=== PATIENT | male | born 1985 | race Hispanic/Latino ===

== ENCOUNTER 2016-09-14 14:27 | Inpatient (IN) | payer MEDICAID ==
[2016-09-14 14:27] VITALS: BMI 23.4
--- NOTE | 2016-09-14 14:49 | C.PDOC ---
History Of Present Illness 31 yr old male with PMHx of schizophrenia, presents to the ER stating he is hearing voices that are telling him to go jump off the bridge. Patient states he was seen at [facility] 2 weeks ago and was discharged with medicine which he has been taking. Patient states he has no outpatient follow up since he is homeless. Denies fever, chest pain, SOB, nausea, vomiting, weakness or numbness. Time Seen by Provider: 09/14/16 14:41 Chief Complaint (Nursing): Psychiatric Evaluation History Per: Patient History/Exam Limitations: no limitations Onset/Duration Of Symptoms: Persistent Past Medical History Reviewed: Historical Data, Nursing Documentation, Vital Signs - Medical History PMH: Anxiety, Back Problems, Bipolar Disorder, Depression, Paranoia, Schizophrenia Surgical History: - [facility] Procedures GROUP PSYCHOTHERAPY (09/01/16) INDIVID PSYCHOTHERAP NEC (07/25/14) INDIVIDUAL PSYCHOTHERAPY, BEHAVIORAL (01/25/15) INDIVIDUAL PSYCHOTHERAPY, COGNITIVE-BEHAVIORAL (04/02/16) INDIVIDUAL PSYCHOTHERAPY, SUPPORTIVE (09/01/16) INJECT/INFUSE NEC (05/02/13) INTRODUCTION OF SERUM/TOX/VACCINE INTO MUSCLE, PERC APPROACH (01/25/15) NEBULIZER THERAPY (07/08/14) OTHER GROUP THERAPY (07/25/14) PSYCHIA INTERV/EVAL NEC (07/22/14) PSYCHIAT DRUG THERAP NEC (02/02/14) Family History: States: No Known Family Hx - Social History Hx Tobacco Use: Yes Hx Alcohol Use: No Hx Substance Use: No - Immunization History Hx Tetanus Toxoid Vaccination: No Hx Influenza Vaccination: No Hx Pneumococcal Vaccination: No Review Of Systems Except As Marked, All Systems Reviewed And Found Negative. Constitutional: Negative for: Fever Cardiovascular: Negative for: Chest Pain Respiratory: Negative for: Shortness of Breath Gastrointestinal: Negative for: Nausea, Vomiting Neurological: Negative for: Weakness, Numbness Psych: Positive for: Other ((+) Hearing voices, telling him to kill himself. ) Physical Exam - Physical Exam Appears: Non-toxic Skin: Warm, Dry, No Rash Head: Atraumatic, Normacephalic Chest: Symmetrical, No Tenderness Cardiovascular: Rhythm Regular, No Murmur Respiratory: Normal Breath Sounds, No Rales, No Wheezing Extremity: Normal ROM, No Swelling Neurological/Psych: Oriented x3, Normal Speech, Normal Motor ED Course And Treatment - Laboratory Results Result Diagrams: 09/14/16 15:50 09/14/16 15:20 Lab Interpretation: No Acute Changes Interpretation Of Abnormal: Depakote level subtherapeutic Progress Note: Patient was seen in ED by crisis and case presented to Dr Walsh. He is accepted for admission to psych unit. Medical Decision Making Medical Decision Making: PLAN: * Alcohol Serum * Drug Screen * CBC * CMP * Urinalysis Disposition - Disposition Disposition: HOSPITALIZED Disposition Time: 17:02 Condition: STABLE - Clinical Impression Clinical Impression: Schizo affective schizophrenia - Scribe Statement The provider has reviewed the documentation as recorded by the Raiza Loving Provider Attestation: All medical record entries made by the Raiza were at my direction and personally dictated by me. I have reviewed the chart and agree that the record accurately reflects my personal performance of the history, physical exam, medical decision making, and the department course for this patient. I have also personally directed, reviewed, and agree with the discharge instructions and disposition.
[2016-09-14 15:27] LABS: RBC URINE 1 /hpf (0-3); URINE BILIRUBIN NEGATIVE (NEGATIVE); URINE BLOOD NEGATIVE (NEGATIVE); URINE COLOR Yellow (YELLOW); URINE GLUCOSE (UA) NORMAL (Normal); URINE KETONE NEGATIVE (NEGATIVE); URINE LEUKOCYTE ESTERASE NEG Leu/uL (Negative); URINE PROTEIN NEGATIVE (NEGATIVE); URINE UROBILINOGEN NORMAL mg/dL (0.2-1.0); WBC URINE < 1 /hpf (0-5)
[2016-09-14 15:35] LABS: CHLORIDE 101 mmol/L (98-107); SODIUM 137 mmol/L (132-148)
[2016-09-14 15:38] LABS: ALB/GLOB RATIO 1.3 (1.0-2.1); ALKALINE PHOSPHATASE 75 U/L (38-126); ALT/SGPT 31 U/L (21-72); AST/SGOT 25 U/L (17-59); BILIRUBIN,TOTAL 0.6 mg/dL (0.2-1.3); BLOOD UREA NITROGEN 9 mg/dL (9-20); CALCIUM 9.4 mg/dl (8.6-10.4); CARBON DIOXIDE 26 mmol/L (22-30); GFR AFRICAN-AMERICAN > 60; GLUCOSE,RANDOM 106 mg/dL (75-110); TOTAL PROTEIN 7.1 g/dL (6.3-8.3)
[2016-09-14 15:39] LABS: ALCOHOL SERUM < 10 mg/dl (0-10)
[2016-09-14 15:53] LABS: BASO # 0.1 K/uL (0.0-0.2); BASO % 1.4 % (0.0-2.0); EOS # 0.2 K/uL (0.0-0.7); EOS % 2.3 % (0.0-4.0); HEMATOCRIT 42.6 % (35.0-51.0); LYMPH # 2.4 K/uL (1.0-4.3); LYMPH % 26.9 % (20.0-40.0); MEAN CELL VOLUME 89.7 fL (80.0-94.0); MEAN CORPUSCULAR HEMOGLOBIN 30.8 pg (27.0-31.0); MEAN CORPUSCULAR HGB CONC 34.3 g/dL (33.0-37.0); MEAN PLATELET VOLUME 7.8 fL (7.2-11.7); MONO # 1.1 K/uL (0.0-0.8); MONO % 12.9 % (0.0-10.0); RED CELL DISTRIBUTION WIDTH 13.3 % (11.5-14.5); WHITE BLOOD COUNT 8.8 K/uL (4.8-10.8)
[2016-09-14] MEDS: Divalproex 250 mg DR Tab PO SCH (22:34)
[2016-09-15] MEDS: Divalproex 250 mg DR Tab PO SCH (11:09)
--- NOTE | 2016-09-15 13:06 | PCM.PSYCH ---
Initial Psychiatric Evaluation - Initial Psychiatric Evaluation Type of Admission: Voluntary Legal Status: Capacity Chief Complaint (in patient's own words): "I'm hearing voices' History of Present Illness and Precipitating Events: The pt is seen, chart reviewed and case discussed. He is well-known to the bond underwriter from previous admissions in [facility]. He was recently, about a week ago, discharged from [facility] where he had been admitted with similar complaints. He was stabilized with haldol and depakote 1500 mg/d, and referred to their partial program. He, as always, did not follow up, nor took his meds (VA level was very low) and got sick again: hearing voices telling him to jump off a bridge again - which he did 10-15 years ago. On top of that he pt lost his housing and day program in [facility] ([facility] / case mgt program and [facility] program) due to his non- compliance, constantly disappearing as he would come to [facility] w/o telling anyone. He has his mo and aunt here but they can't take or help him ( bond underwriter had spoken in March) He denies acute SI or HI but still hearing voices. Contracts for safety and will follow safety plan No new medical issues. Medically stable. No drugs or alcohol, except for occasional MJ use and 2 ppd cigarettes No family hx of psych/CHANTE issues. This is an excerpt from his most recent admission: Pt is a 31 y.o., single, male who referred self to the ED secondary to experiencing command auditory hallucinations. Pt has an extensive psychiatric history, both voluntary and involuntary admissions. Pt reported he was committed to [facility] for 11 months in 2016 due to command auditory hallucinations. Pt reported being committed and transferred from [facility] in [place], [place]. Pt reported at that time he was on a [employer] to [place] to visit his brother and decided to get off the bus in [place], [place]. Pt also reported he was admitted to [facility] on 04/17/16 and discharged on 08/10/16. Pt reported he was also committed to [facility] due to command auditory hallucinations. Pt reported that just recently, on August 29 he was discharged from [facility] after being admitted for a week. Pt reported at that time he was started on the Invega injection; 2nd dosage. Pt reported this was a voluntary admission. Pt reported hx of prior suicide attempt. Pt reported he attempted suicide in January 2013 via jumping [place] [address] in [place], [place]. Pt reported he was brought to [facility] at that time and admitted for 2 weeks. Pt reported hx of self- injurious bxs via cutting. Pt denied hx of aggression/assaultive bxs. Pt reported no acute medical issues. Prior to hospitalization, pt reported being homeless. Pt reported he has been homeless on and off. Pt reported that he was a resident at a retirement in [facility] for couple of weeks however, just recently decided to walk out and not return. Pt reported that he does not want to be a retirement and rather go to a Alf upon discharge. Pt reported hx at [facility] in [place], [place]. Pt also reported he resided in [place], [place] with the assistance of [facility] however; lost his apartment due to my behavior. Pt never and has no children. Pt has 6 siblings, 4 brothers and 2 sisters. Pt reported limited contact with siblings. Pt reported an unsupportive relationship with his mother due to past discords and verbal altercations. Pt is currently not linked to any agency or program. Pt reported unknown family hx of mental illness and/or SA/ETOH abuse. Pt denied ETOH abuse. Pt reported using marijuana last week after being clean for 2 years. Pt reported using marijuana to "get away from everything and see if the voices would leave me alone." Pt also reported smoking cigarettes, 2 packs per day. Pt denied hx of physical/sexual/ emotional/verbal abuse. Pt denied hx of any legal issues. Pt reported he completed High School. Pt is not a member of the labor force. Pt is disabled. Pt reported no work hx. Pt denied access to firearms/weapons. Pt did not identify with any jain. Current Medications: Active Medications Generic Name Dose Route Start Last Admin Trade Name Freq PRN Reason Stop Dose Admin Benztropine Mesylate 2 mg 09/14/16 18:48 09/14/16 22:34 Cogentin PO 2 mg Q6 PRN Administration Extra Pyramidal Symptoms Diphenhydramine HCl 50 mg 09/14/16 18:48 Benadryl PO Q6 PRN Extra Pyramidal Symptoms Divalproex Sodium 250 mg 09/14/16 19:00 09/15/16 11:[address] PO 250 mg BID AROLDO Administration Haloperidol 5 mg 09/14/16 18:48 Haldol PO Q8 PRN Moderate Agitation Haloperidol 5 mg 09/14/16 19:00 09/15/16 11:09 Haldol PO 5 mg BID AROLDO Administration Haloperidol Lactate 5 mg 09/14/16 18:48 Haldol IM Q8 PRN Moderate Agitation Lorazepam 2 mg 09/14/16 18:48 Ativan PO Q8H PRN Severe Agitation Trazodone HCl 100 mg 09/14/16 22:00 09/14/16 22:34 Desyrel PO 100 mg HS AROLDO Administration Past Psychiatric History - Past Psychiatric History Previous Treatment History: Inpatient Pertinent Medical Hx (Current Medical&Sleep Prob, Allergies): Allergies Allergy/AdvReac Type Severity Reaction Status Date / Time No Known Allergies Allergy Verified 09/14/16 14:39 Divalproex [Depakote DR(*BID*)] 500 mg PO DAILY #30 tcp 09/05/16 Haloperidol [Haldol] 5 mg PO BID #60 tab 09/05/16 Review of Systems - Neurological Neurological: Weakness - Psychiatric Psychiatric: Abnormal Sleep Pattern, Anhedonia, Anxiety, Auditory Hallucinations , Behavioral Changes, Change in Appetite, Depression, Difficulty Concentrating, Hallucinations, Hopelessness, Irritability, Mood Swings, Paranoia. absent: Homicidal Ideation, Suicidal Ideation Mental Status Examination - Personal Presentation Personal Presentation: Looks stated age - Affect Affect: Blunted - Motor Activity Motor Activity: Calm - Reliability in Providing Information Reliability in Providing Information: Fair - Speech Speech: Organized - Mood Mood: Depressed, Anxious - Formal Thought Process Formal Thought Process: Hallucinations, Circumstantial - Cognitive Functions Orientation: Person, Place, Situation, Time Sensorium: Alert Attention/Concentration: Easily distracted Abstract Thinking: Riddle Estimate of Intelligence: Average Judgement: Imparied, as evidence by: Poor judgement Memory: Recent intact, as evidence by: Ability to recall events of the day, Remote intact, as evidenced by: Ability to recall historical events - Risk Risk: Diminished functioning - Strength & Assets Inventory Strength & Assets Inventory: Cooperative - Limitations Limitations: Living alone, Other (homeless) DSM 5 DX - DSM 5 DSM 5 Diagnosis: Schizoaffective - depressed - Recommended/Plan of Treatment Treatment Recommendations and Plan of Treatment: Haldol Decanoate or Invega Sustena shot as he is very non-compliant with meds Resume depakote Consider Clozapine prn meds Cogentin Attend groups and activities Support and psychoed RI for MJ use Patch and RI for tobacco use Refer to [facility] program 34 min Projected ELOS: 7 days Prognosis: Fair Discharge Plan and Discharge Criteria: Refer to [facility] or PACT team or [facility] No AVH/del or SI are the dc crietria - Smoking Cessation Smoking Cessation Initiated: Yes
[2016-09-15] MEDS: Divalproex 500 mg DR Tab PO SCH (18:11)
[2016-09-16] MEDS: Divalproex 500 mg DR Tab PO SCH ×3 (10:09→17:11)
--- NOTE | 2016-09-16 18:08 | PCM.PYCHPN ---
Psychiatric Progress Note - Psychiatric Progress Note Patient seen today, length of contact: 16 min Patient Chief Complaint: "I'm OK I guess" Problems Identified/Issues Discussed: The pt is seen, chart reviewed, case discussed with staff. The pt is compliant with medications and reports no side-effects. Symptoms are improving but needs more time to stabilize. After care discussed, support and psychoeducation given. In valle Sustenna shot is ordered, will be given on Monday. He agreed to be referred to [facility] and CRC, and stay in [facility] He is somewhat more agreeable this time, likely due to the 2 injections he got last month Medication Change: Yes (add Invega Sustenna) Medical Record Reviewed: Yes Mental Status Examination - Cognitive Function Orientation: Person, Place, Situation, Time Memory: Intact Attention: WNL Concentration: WNL Association: WNL Fund of Knowledge: WNL - Mood Mood: Depressed, Anxious - Affect Affect: Constricted - Speech Speech: Appropriate - Formal Thought Process Formal Thought Process: Hallucinations - Suicidal Ideation Suicidal Ideation: No - Homicidal Ideation Homicidal Ideation: No Goal/Treatment Plan - Goal/Treatment Plan Need for Continued Stay: Discharge may exacerbated symptoms, Severe functional impairment Progress Toward Problem(s) and Goals/Treatment Plan: Haldol Decanoate or Invega Sustena shot as he is very non-compliant with meds Resume depakote Consider Clozapine prn meds [place] Attend groups and activities Support and psychoed [place] for MJ use Patch and OH for tobacco use Refer to [facility] program and CRC Estimated Date of D/C: 09/21/16
[2016-09-17] MEDS: Divalproex 500 mg DR Tab PO SCH ×3 (09:20→17:38)
[2016-09-18 07:07] VITALS: O2SAT 98
[2016-09-18] MEDS: Divalproex 500 mg DR Tab PO SCH ×3 (09:30→17:19)
--- NOTE | 2016-09-19 00:35 | PCM.PYCHPN ---
Psychiatric Progress Note - Psychiatric Progress Note Patient seen today, length of contact: 16 min Patient Chief Complaint: I AM HEARING VOICES STILL Problems Identified/Issues Discussed: SYMPTOM MANAGEMENT AFTERCARE Medical Problems: NOTHING ACUTE Diagnostic Results: REVIWED DSM 5 Symptoms Update: AUDITORY HALLUCINATION Medication Change: No Medical Record Reviewed: Yes Mental Status Examination - Cognitive Function Orientation: Person, Place, Situation, Time Memory: Intact Attention: WNL Concentration: WNL Association: WNL Fund of Knowledge: WNL - Mood Mood: Depressed, Anxious - Affect Affect: Constricted - Speech Speech: Appropriate - Formal Thought Process Formal Thought Process: Hallucinations - Homicidal Ideation Homicidal Ideation: No Goal/Treatment Plan - Goal/Treatment Plan Need for Continued Stay: Discharge may exacerbated symptoms, Failed transitioning, Severe functional impairment Progress Toward Problem(s) and Goals/Treatment Plan: SCHIZOAFFECTIVE DISORDER TAKING MEDS ATTENDING GROUPS Estimated Date of D/C: 09/21/16 - Smoking Cessation Smoking Cessation Initiated: Yes
--- NOTE | 2016-09-19 03:08 | PCM.PYCHPN ---
Psychiatric Progress Note - Psychiatric Progress Note Patient seen today, length of contact: 16 min Patient Chief Complaint: THE VOICES ARE LESS INTENSE Problems Identified/Issues Discussed: GROUNDING DISTRACTION RELAXATION TECHNICS FOR SYMPTOM MANAGEMENT Medical Problems: NOTHING ACUTE Diagnostic Results: REVIEWED Medication Change: No Medical Record Reviewed: Yes Mental Status Examination - Cognitive Function Orientation: Person, Place, Situation, Time Memory: Intact Attention: WNL Association: [facility] Fund of Knowledge: WN - Mood Mood: Depressed, Anxious - Affect Affect: Constricted - Speech Speech: Appropriate - Formal Thought Process Formal Thought Process: Hallucinations - Suicidal Ideation Suicidal Ideation: No - Homicidal Ideation Homicidal Ideation: No Goal/Treatment Plan - Goal/Treatment Plan Need for Continued Stay: Remain at risks for inpatient hospitalization, Discharge may exacerbated symptoms, Failed transitioning, Severe functional impairment Progress Toward Problem(s) and Goals/Treatment Plan: SCHIZOAFFECTIVE DISORDER HI CBT SUPPORTIVE PSYCHOTHERAPY Estimated Date of D/C: 09/21/16 - Smoking Cessation Smoking Cessation Initiated: No
[2016-09-19] MEDS: Divalproex 500 mg DR Tab PO SCH ×3 (09:48→17:12)
[2016-09-19] MEDS ORDERED: INVEGA SUSTENNA 117 MG IM ONE (11:00)
[2016-09-19] MEDS ORDERED: PALIPERIDONE IM ONE (11:00)
--- NOTE | 2016-09-19 13:58 | PCM.PYCHPN ---
Psychiatric Progress Note - Psychiatric Progress Note Patient seen today, length of contact: 16 min Patient Chief Complaint: "I need to go" Problems Identified/Issues Discussed: The pt is seen, chart reviewed, case discussed with staff. Support given, CBT used briefly No new symptoms reported, improving slowly and needs some more time No SEs from medications, risks discussed. AIMS is zero After care discussed - Ok with [facility] Medication Change: Yes (Add inderal for possible akathisia) Medical Record Reviewed: Yes Mental Status Examination - Cognitive Function Orientation: Person, Place, Situation, Time Memory: Intact Attention: WNL Association: WNL Fund of Knowledge: WNL - Mood Mood: Depressed, Anxious - Affect Affect: Constricted - Speech Speech: Appropriate - Formal Thought Process Formal Thought Process: Hallucinations - Suicidal Ideation Suicidal Ideation: No - Homicidal Ideation Homicidal Ideation: No Goal/Treatment Plan - Goal/Treatment Plan Need for Continued Stay: Remain at risks for inpatient hospitalization, Discharge may exacerbated symptoms, Failed transitioning, Severe functional impairment Progress Toward Problem(s) and Goals/Treatment Plan: Invega Sustena shot given as he is very non-compliant with meds Depakote Consider Clozapine next time Low dose haldol and cogentin due to breakthru sxs prn meds Cogentin Attend groups and activities Support and psychoed ID for MJ use Patch and ID for tobacco use Refer to [facility] program and [facility] Estimated Date of D/C: 09/21/16
[2016-09-20 07:42] VITALS: BP 143/79; PULSE 69; RESP 18; TEMP 97.9
--- NOTE | 2016-09-20 10:54 | PCM.PYCHDC ---
Mental Status Examination - Mental Status Examination Orientation: Person, Place, Situation, Time Memory: Intact Mood: Anxious Affect: Blunted Speech: Slurred Attention: Poor Concentration: Poor Association: Loose Fund of Knowledge: Poor Formal Thought Process: No Impairment (but he is secretive) Suicidal Ideation: No Current Homicidal Ideation?: No Discharge Summary - Discharge Note Reason for Hospitalization: Suicidal thoughts, depression, AH Psychiatric History (includes Medical, Family, Personal Hx): Numerous psych admissions Consultations:: List each consultation separately and include: 1. Reason for request. 2. Findings. 3. Follow-up Summary of Hospital Course include:: 1. Description of specific treatment plan utilized for patients during their course of treatmen. 2. Summarize the time- course for resolution of acute symptoms and/or regressed behaviors. 3. Describe issues identified and worked on during hospitalization. 4. Describe medication utilized. 5. Describe medical problems identified and treated. 6. Reassessment of suicide risk Summary of Hospital Course: The pt is seen, chart reviewed and case discussed. On admission: He is well-known to the video game script writer from previous admissions in [facility]. He was recently, about a week ago, discharged from [facility] psych unit where he had been admitted with similar complaints. He was stabilized with haldol and depakote 1500 mg/d, and referred to their partial program. He, as always, did not follow up, nor took his meds (VA level was very low) and got sick again: hearing voices telling him to jump off a bridge again - which he did 10-15 years ago. On top of that he pt lost his housing and day program in [facility] ([facility] / case mgt program and Community Psychiatry program) due to his non- compliance, constantly disappearing as he would come to [facility] w/o telling anyone. He has his mo and aunt here but they can't take or help him ( video game script writer had spoken in March) He denies acute SI or HI but still hearing voices. Contracts for safety and will follow safety plan No new medical issues. Medically stable. No drugs or alcohol, except for occasional MJ use and 2 ppd cigarettes No family hx of psych/CHANTE issues. Hospital course: The pt was admitted and started on treatment with psychotherapy, support, psychoeducation and medications. OK and CBT used. The pt attended groups and activities, as well as milieu therapy. All the risks and benefits of medications are discussed and the patient understood and agreed. he got an Invega Sustena shot around September 18 as his third dose. 117 mg He got two others in his previous admissions. No SEs He remeined low insight, somewhat isolated, odd, pacing a lot (inderal started) and regressed. After care discussed with the patient. He agreed with [facility] but he usually does not follow up. Risks discussed. - Final Diagnosis (DSM 5) Condition upon Discharge: STABLE DSM 5: Schizoaffective - depressed Disposition: HOME/ ROUTINE Follow-up Treatment Plan: Continue below medications after discharge. Follow after care plan as discussed: CRC and another Invega Sustenna shot by . Go to [facility] correction Use relapse prevention skills Return to ER or call 911 if suicidal, homicidal or symptoms relapse. Stay away from stress, alcohol and drugs. See primary doctor once a year. Prescriptions/Medication Reconciliation: Benztropine [Cogentin] 1 mg PO BID #60 tab Divalproex [Depakote DR] 500 mg PO TID #90 tcp Haloperidol [Haldol] 5 mg PO DAILY #30 tab Paliperidone [Invega Sustenna] 117 mg IM ONCE #1 syr Propranolol [Inderal] 20 mg PO TID #90 tab traZODone [Desyrel] 100 mg PO HS #30 tab - Smoking Cessation Smoking Cessation Medication prescribed: No - Antipsychotic Medications Pt discharged on 2 or more routine antipsychotic medications: No
[2016-09-20] MEDS: Divalproex 500 mg DR Tab PO SCH (10:55)
== END 2016-09-20 12:30 | disposition home or self-care (01) | DRG 430 ==
LOC: C.ER 14:27 → C.5E 17:02
PROVIDERS: ADMIT Psychiatry & Neurology Psychiatry; ATTEND Psychiatry & Neurology Psychiatry
PROC: GZ56ZZZ Individual Psychotherapy, Supportive (ICD-10-PCS; principal; 2016-09-14)
PROC: GZHZZZZ Group Psychotherapy (ICD-10-PCS; 2016-09-14)
PROC: GZ58ZZZ Individual Psychotherapy, Cognitive-Behavioral (ICD-10-PCS; 2016-09-14)
DX: F25.1 Schizoaffective disorder, depressive type (principal); R45.851 Suicidal ideations; F41.9 Anxiety disorder, unspecified; F12.90 Cannabis use, unspecified, uncomplicated; F17.210 Nicotine dependence, cigarettes, uncomplicated; Z59.0 Homelessness; Z91.14 Patient's other noncompliance with medication regimen

== ENCOUNTER 2016-11-18 21:58 | Emergency (ER) | payer MEDICAID ==
[2016-11-18 21:58] VITALS: BMI 23.4
[2016-11-18 22:10] VITALS: BP 135/89; PULSE 92; RESP 20; TEMP 98.8; O2SAT 96
--- NOTE | 2016-11-18 23:28 | C.PDOC ---
History Of Present Illness 31 year old male who presents to the ER with a complaint of hearing voices. Patient was seen and evaluated in [facility] last night for the same complaint. Patient eloped tonight prior to evaluation at 23:00. Time Seen by Provider: 11/18/16 23:10 Chief Complaint (Nursing): Psychiatric Evaluation Past Medical History Vital Signs: Last Vital Signs Temp 98.8 F 11/18/16 22:01 Pulse 92 H 11/18/16 22:01 Resp 20 11/18/16 22:01 BP 135/89 11/18/16 22:01 Pulse Ox 96 11/18/16 23:28 - Medical History PMH: Anxiety, Back Problems, Bipolar Disorder, Depression, Paranoia, Schizophrenia Surgical History: - [facility] Procedures GROUP PSYCHOTHERAPY (09/14/16) INDIVID PSYCHOTHERAP NEC (07/25/14) INDIVIDUAL PSYCHOTHERAPY, BEHAVIORAL (01/25/15) INDIVIDUAL PSYCHOTHERAPY, COGNITIVE-BEHAVIORAL (09/14/16) INDIVIDUAL PSYCHOTHERAPY, SUPPORTIVE (09/14/16) INJECT/INFUSE NEC (05/02/13) INTRODUCTION OF SERUM/TOX/VACCINE INTO MUSCLE, PERC APPROACH (01/25/15) NEBULIZER THERAPY (07/08/14) OTHER GROUP THERAPY (07/25/14) PSYCHIA INTERV/EVAL NEC (07/22/14) PSYCHIAT DRUG THERAP NEC (02/02/14) Family History: States: Unknown Family Hx - Social History Hx Tobacco Use: Yes Hx Alcohol Use: No Hx Substance Use: No - Immunization History Hx Tetanus Toxoid Vaccination: No Hx Influenza Vaccination: No Hx Pneumococcal Vaccination: No ED Course And Treatment O2 Sat by Pulse Oximetry: 96 Medical Decision Making Medical Decision Making: psych/schizo eloped prior to eval yesterday's eval @ [place] did not warrant admission Disposition Doctor Will See Patient In The: Office Counseled Patient/Family Regarding: Studies Performed, Diagnosis - Disposition Disposition: ELOPEMENT - ER ONLY Disposition Time: 23:27 Condition: GOOD Forms: [facility] (Gibraltarian) - Clinical Impression Clinical Impression: Schizophrenia, Malingering - Scribe Statement The provider has reviewed the documentation as recorded by the Scribe Julien Batista All medical record entries made by the Scribe were at my direction and personally dictated by me. I have reviewed the chart and agree that the record accurately reflects my personal performance of the history, physical exam, medical decision making, and the department course for this patient. I have also personally directed, reviewed, and agree with the discharge instructions and disposition.
== END 2016-11-18 23:10 | disposition left against medical advice (07) ==
LOC: C.ER 21:58
DX: Z76.5 Malingerer [conscious simulation] (principal); F20.9 Schizophrenia, unspecified

== ENCOUNTER 2016-12-23 20:48 | Inpatient (IN) | payer MEDICAID ==
[2016-12-23 20:48] VITALS: BMI 23.4
--- NOTE | 2016-12-23 21:39 | C.PDOC ---
History Of Present Illness 31 year old male presents to the ED with complaints of hearing voices that are telling him to jump off a bridge. Patient states he does not want to live anymore and wants "to see God." He denies any physical complaints or homicidal ideations. Chief Complaint (Nursing): Psychiatric Evaluation History Per: Patient History/Exam Limitations: no limitations Onset/Duration Of Symptoms: Unknown Current Symptoms Are (Timing): Still Present Suicide/Self Injury Attempted (Context): None Modifying Factor(s): None Severity: None Associated Symptoms: Suicidal Thoughts, Suicidal Plan Involuntary Hold By: None Recent travel outside of the [place]: No Past Medical History Reviewed: Historical Data, Nursing Documentation, Vital Signs Vital Signs: Last Vital Signs Temp 98.2 F 12/23/16 20:58 Pulse 104 H 12/23/16 20:58 Resp 20 12/23/16 20:58 BP 123/85 12/23/16 20:58 Pulse Ox 96 12/23/16 23:14 - Medical History PMH: Anxiety, Back Problems, Bipolar Disorder, Depression, Paranoia, Schizophrenia Surgical History: - [facility] GROUP PSYCHOTHERAPY (11/20/16) INDIVID PSYCHOTHERAP NEC (07/25/14) INDIVIDUAL PSYCHOTHERAPY, BEHAVIORAL (01/25/15) INDIVIDUAL PSYCHOTHERAPY, COGNITIVE-BEHAVIORAL (09/14/16) INDIVIDUAL PSYCHOTHERAPY, SUPPORTIVE (11/20/16) INJECT/INFUSE NEC (05/02/13) INTRODUCTION OF SERUM/TOX/VACCINE INTO MUSCLE, PERC APPROACH (01/25/15) NEBULIZER THERAPY (07/08/14) OTHER GROUP THERAPY (07/25/14) PSYCHIA INTERV/EVAL NEC (07/22/14) PSYCHIAT DRUG THERAP NEC (02/02/14) Family History: States: Unknown Family Hx - Social History Hx Tobacco Use: Yes Hx Alcohol Use: No Hx Substance Use: Yes (THC) - Immunization History Hx Tetanus Toxoid Vaccination: No Hx Influenza Vaccination: No Hx Pneumococcal Vaccination: No Review Of Systems Constitutional: Negative for: Fever, Chills Cardiovascular: Negative for: Chest Pain, Palpitations Respiratory: Negative for: Cough, Shortness of Breath Gastrointestinal: Negative for: Nausea, Vomiting Psych: Positive for: Suicidal ideation Physical Exam - Physical Exam Appears: Non-toxic, No Acute Distress Skin: Warm, Dry Head: Atraumatic, Normacephalic Eye(s): bilateral: Normal Inspection, PERRL, EOMI Oral Mucosa: Moist Neck: Supple Chest: Symmetrical, No Deformity Cardiovascular: Rhythm Regular, No Murmur Respiratory: Normal Breath Sounds, No Rales, No Rhonchi, No Wheezing Gastrointestinal/Abdominal: Soft, No Tenderness, No Distention, No Guarding, No Rebound Extremity: Normal ROM, No Tenderness Neurological/Psych: Oriented x3, Normal Speech ED Course And Treatment - Laboratory Results Result Diagrams: 12/23/16 21:40 12/23/16 21:40 ECG: Interpreted By Me, Viewed By Me ECG Rhythm: Sinus Rhythm ECG Interpretation: Normal Interpretation Of ECG: NSR, normal tracings Rate From EC O2 Sat by Pulse Oximetry: 96 (RA) Pulse Ox Interpretation: Normal Progress Note: Labs were ordered. Disposition Discussed With : Ceci Gordon Doctor Will See Patient In The: Hospital Counseled Patient/Family Regarding: Diagnosis - Disposition Disposition: HOSPITALIZED Disposition Time: 23:32 Condition: STABLE Forms: [facility] (Jamaican) - POA Present On Arrival: None - Clinical Impression Clinical Impression: Major depression - Scribe Statement The provider has reviewed the documentation as recorded by the Scribe Rekha Daly All medical record entries made by the Scribe were at my direction and personally dictated by me. I have reviewed the chart and agree that the record accurately reflects my personal performance of the history, physical exam, medical decision making, and the department course for this patient. I have also personally directed, reviewed, and agree with the discharge instructions and disposition.
[2016-12-23 21:45] LABS: BASO # 0.2 K/uL (0.0-0.2); BASO % 1.1 % (0.0-2.0); EOS # 0.2 K/uL (0.0-0.7); EOS % 1.1 % (0.0-4.0); HEMATOCRIT 41.5 % (35.0-51.0); LYMPH % 20.5 % (20.0-40.0); MEAN CELL VOLUME 88.7 fL (80.0-94.0); MEAN CORPUSCULAR HEMOGLOBIN 31.1 pg (27.0-31.0); MEAN CORPUSCULAR HGB CONC 35.1 g/dL (33.0-37.0); MEAN PLATELET VOLUME 7.9 fL (7.2-11.7); MONO # 1.4 K/uL (0.0-0.8); MONO % 9.3 % (0.0-10.0); RED CELL DISTRIBUTION WIDTH 13.6 % (11.5-14.5); WHITE BLOOD COUNT 14.6 K/uL (4.8-10.8)
[2016-12-23 21:56] LABS: CHLORIDE 98 mmol/L (98-107); POTASSIUM 3.9 mmol/L (3.6-5.2); SODIUM 140 mmol/L (132-148)
[2016-12-23 21:58] LABS: BILIRUBIN,TOTAL 0.5 mg/dL (0.2-1.3); CARBON DIOXIDE 22 mmol/L (22-30); GFR AFRICAN-AMERICAN > 60
[2016-12-23 21:59] LABS: ALB/GLOB RATIO 1.5 (1.0-2.1); ALKALINE PHOSPHATASE 73 U/L (38-126); ALT/SGPT 48 U/L (21-72); AST/SGOT 28 U/L (17-59); BLOOD UREA NITROGEN 9 mg/dL (9-20); CALCIUM 9.8 mg/dl (8.6-10.4); GLUCOSE,RANDOM 108 mg/dL (75-110); TOTAL PROTEIN 7.7 g/dL (6.3-8.3)
[2016-12-23 22:00] LABS: ALCOHOL SERUM < 10 mg/dl (0-10)
[2016-12-23 22:27] LABS: RBC URINE < 1 /hpf (0-3); URINE BILIRUBIN NEGATIVE (NEGATIVE); URINE BLOOD NEGATIVE (NEGATIVE); URINE COLOR Straw (YELLOW); URINE GLUCOSE (UA) NORMAL (Normal); URINE KETONE NEGATIVE (NEGATIVE); URINE LEUKOCYTE ESTERASE NEG Leu/uL (Negative); URINE PROTEIN NEGATIVE (NEGATIVE); URINE UROBILINOGEN NORMAL mg/dL (0.2-1.0); WBC URINE 1 /hpf (0-5)
--- NOTE | 2016-12-24 01:00 | PCM.BM ---
<Ney Villarreal - Last Filed: 12/24/16 00:55> Treatment Plan Problems - Problems identified on initial assessmt Major Depression Date Initiated: 12/24/16 Time Initiated: 00:15 Assessment reference: NA Status: Active Auditory Hallucination Date Initiated: 12/24/16 Time Initiated: 00:15 Assessment reference: NA Status: Active Substance Abuse Date Initiated: 12/24/16 Time Initiated: 00:15 Assessment reference: NA Status: Active Treatment assets and liabiliti Patient Assests: adapts well, cooperative, self-reliant, ADL independent, physically healthy, negotiates basic needs Patient Liabilities: live alone, financial problems, poor support system, relationship conflicts, substance abuse, legal issue - Milieu Protocol Maintain good personal hygiene: daily Encourage regular showers, daily Remind patient to perform daily oral care, daily Assist patient to perform ADL's Maintain personal safety: every shift Educate patient to report safety concerns to staff, every shift Monitor environment for contraband/sharps Medication safety: Monitor for expected outcome, potential side effects: every shift, Assess barriers to learning: every shift, Assess readiness for medication education: every shift <Yazmin Hernandez - Last Filed: 12/26/16 11:15> Family Contact Family involvement: Famliy/SO not involved - Goals for Treatment Patient goals for treatment: "I dont know." Discharge/Continuing Care - Education Needs Education Needs: Patient Medication, Patient Coping Skills, Patient Placement options, Patient Community resources - Discharge Discharge Criteria: Tolerates medication w/o severe side effects, No longer exhibiting s/s of withdrawal, Reduction of target symptoms Discharge to:: [facility] - Treatment Team Participation Discussed with Family/SO: No Was Patient/Family/SO present at Treatment Team Meeting: Yes
[2016-12-24 07:23] VITALS: O2SAT 98
[2016-12-24] MEDS: Divalproex 500 mg DR Tab PO SCH ×2 (10:00→17:57)
[2016-12-24] MEDS: Multiple Vitamins Tab PO SCH (10:04)
--- NOTE | 2016-12-24 17:50 | PCM.PSYCH ---
Initial Psychiatric Evaluation - Initial Psychiatric Evaluation Type of Admission: Voluntary Legal Status: Capacity Chief Complaint (in patient's own words): "I'm hearing voices" History of Present Illness and Precipitating Events: This is a 31 yo male with the diagnosis of Schizophrenia vs Schizoaffective d/o was presented yesterday with command AH telling him to jump of from the bridge. Pt has a hx of suicide attempt in 2012. He had multiple admissions, last d/c from [facility] was on last Monday. He reported that he did not f/u with [facility] and he was not compliant with meds. Pt denies depressive symptoms such as depressed mood, anhedonia, poor concentration, suicidal or homicidal ideation intent or plan, or access to guns , denies feeling of worthlessness, poor self-esteem, helplessness or hopelessness in future, decrease appetite or insomnia. Pt denies manic symptoms such as irritable or expansive mood, high level of energy, sexual indiscretion, legal problem, increase in distraction, and flight of ideas, talkative, thoughts racing. Denies any OCD symptoms, Panic attack symptoms. Denies excessive anxiety for last 6 months, restlessness, easily fatigued, difficulty in concentration, irritability, muscle tension, trouble in sleep. Pt denies exposure to actual trauma, or threatened or serious injury or sexual violence in past, denies flash back memories, hypervigilance, anxiety, easy startling, difficulty in focusing, sleep disturbance, nightmares, dissociative reactions to surrounding, persistence avoidance from others, isolation, avoidance of bad memories time spend 30 minutes Current Medications: Active Medications Generic Name Dose Route Start Last Admin Trade Name Pepeq PRN Reason Stop Dose Admin Benztropine Mesylate 2 mg 12/23/16 23:15 12/24/16 09:59 Cogentin PO 2 mg BID AROLDO Administration Divalproex Sodium 500 mg 12/23/16 23:15 12/24/16 10:[address] PO 500 mg BID AROLDO Administration Docusate Sodium 100 mg 12/23/16 23:03 12/24/16 09:59 Colace PO 100 mg BID PRN Administration Constipation Haloperidol 5 mg 12/24/16 10:00 12/24/16 10:01 Haldol PO 5 mg BID AROLDO Administration Haloperidol 5 mg 12/24/16 00:31 12/24/16 00:44 Haldol PO 5 mg Q8 PRN Administration Agitation Hydroxyzine HCl 25 mg 12/23/16 23:03 Atarax PO Q6 PRN Anxiety Ibuprofen 400 mg 12/23/16 23:03 Motrin Tab PO Q6 PRN Pain, Mild (1-3) Lorazepam 2 mg 12/23/16 23:03 Ativan PO Q8H PRN Severe Agitation Multivitamins 1 tab 12/24/16 10:00 12/24/16 10:04 Hexavitamin PO 1 tab DAILY AROLDO Administration Trazodone HCl 100 mg 12/23/16 23:13 12/24/16 00:41 Desyrel PO 100 mg HS PRN Administration Insomnia Past Psychiatric History - Past Psychiatric History Previous Treatment History: Inpatient Prior Psychiatric Treatment: Multiple admission [facility]: [facility] History of Abuse: denied History of ETOH/Drug Use: denied History of Family Illness: denied Pertinent Medical Hx (Current Medical&Sleep Prob, Allergies): Allergies Allergy/AdvReac Type Severity Reaction Status Date / Time No Known Allergies Allergy Verified 12/23/16 21:05 Benztropine [Cogentin] 1 mg PO BID #60 tab 11/22/16 Divalproex [Depakote DR(*BID*)] 500 mg PO BID #60 tcp 11/22/16 Haloperidol [Haldol] 5 mg PO BID #60 tab 11/22/16 traZODone [Desyrel] 100 mg PO HS #30 tab 11/22/16 Ziprasidone HCl [Geodon] 20 mg PO DAILY 12/23/16 Review of Systems - Review of Systems Systems not reviewed;Unavailable: Acuity of Condition All systems: reviewed and no additional remarkable complaints except (please see HPI) - Constitutional Constitutional: Other (denied) Mental Status Examination - Personal Presentation Personal Presentation: Looks stated age - Affect Affect: Constricted - Motor Activity Motor Activity: Calm - Reliability in Providing Information Reliability in Providing Information: Fair - Speech Speech: Coherent - Mood Mood: Neutral - Formal Thought Process Formal Thought Process: Hallucinations (command auditory hallucinations) - Hallucinations/Delusions Hallucinations: Auditory - Obsessions/Compulsions Obsessions: No Compulsions: No - Cognitive Functions Orientation: Person, Place, Situation, Time Sensorium: Alert Attention/Concentration: Attentive Abstract Thinking: [place] Estimate of Intelligence: Average Judgement: Imparied, as evidence by: Other (not compliant with meds after d/c), Intact, as evidence by: Good judgement (knows that he needs help and can get better with inpatient hospitalization) Memory: Recent intact, as evidence by: Ability to recall events of the day - Risk Risk: Diminished functioning - Strength & Assets Inventory Strength & Assets Inventory: Cooperative - Limitations Limitations: Living alone, Other (homeless) DSM 5 DX - DSM 5 DSM 5 Diagnosis: Schizoaffective d/o - Recommended/Plan of Treatment Treatment Recommendations and Plan of Treatment: Start Depakote for mood stabilization Haldol for psychosis Cogentin for EPS. Recommend individual and group therapy. Therapy in milieu. Medication, benefits, alternative and s/e were discussed with pt. he verbalized understanding and agree with the treatment plan. Projected ELOS: 5-7 days Prognosis: fair with the treatment Discharge Plan and Discharge Criteria: Pt needs to stabilized on meds for AH.
[2016-12-25] MEDS: Divalproex 500 mg DR Tab PO SCH ×2 (09:27→17:20)
[2016-12-25] MEDS: Multiple Vitamins Tab PO SCH (09:28)
[2016-12-25] MEDS ORDERED: Magnesium Hydroxide Susp 30 ml UD PO ONE (17:23)
--- NOTE | 2016-12-25 17:40 | PCM.PYCHPN ---
Psychiatric Progress Note - Psychiatric Progress Note Patient seen today, length of contact: 15 minutes Patient Chief Complaint: "I'm hearing voices" Problems Identified/Issues Discussed: Patient was seen. Chart was reviewed important content noted. Nurse input received that pt is compliant with meds. Patient still had auditory hallucinations telling him that he is a piece of S. He stated improvement in his AH than yesterday and improvement in his depressive sx. No events overnight. Patient slept well and is eating well. Denies suicidal or homicidal ideations. Patient does not report visual hallucinations. No paranoia elicited. Patient has remained in good clinical and behavioral control. He is compliant with meds and denied s/e Patient is finding medications beneficial and would like to continue with treatment plan. Patient appreciated that treatment team is trying to help. Diagnostic Results: no new lab results DSM 5 Symptoms Update: schizoaffective d/o cronic with acute exacerbation Medication Change: No Medical Record Reviewed: Yes Mental Status Examination - Cognitive Function Orientation: Person, Place, Situation, Time Memory: Intact Attention: WNL Concentration: WNL Association: WNL Fund of Knowledge: [facility] Decription of patient's judgement and insights: limited/limited - Mood Mood: Neutral - Affect Affect: Constricted - Speech Speech: Appropriate - Formal Thought Process Formal Thought Process: Hallucinations (command auditory hallucinations) Psychotic Thoughts and Behaviors: reported AH - Suicidal Ideation Suicidal Ideation: No - Homicidal Ideation Homicidal Ideation: No Goal/Treatment Plan - Goal/Treatment Plan Need for Continued Stay: Discharge may exacerbated symptoms Progress Toward Problem(s) and Goals/Treatment Plan: Continue Depakote for mood stabilization Haldol for psychosis Cogentin for EPS. Recommend individual and group therapy. Therapy in milieu. Medication, benefits, alternative and s/e were discussed with pt. he verbalized understanding and agree with the treatment plan. Estimated Date of D/C: 12/28/16
[2016-12-26] MEDS: Multiple Vitamins Tab PO SCH (09:33)
[2016-12-26] MEDS: Divalproex 500 mg DR Tab PO SCH ×2 (09:33→17:20)
--- NOTE | 2016-12-26 14:47 | PCM.PYCHPN ---
Psychiatric Progress Note - Psychiatric Progress Note Patient seen today, length of contact: 16 mins Patient Chief Complaint: "Im okay doctor" Problems Identified/Issues Discussed: The pt is seen, chart reviewed, case discussed with staff. Support given, CBT and NC used briefly. Patient reports he slept well and is currently feeling okay. Denies SI, but reports he is still hearing voices that tell him he is a "piece of shit" and that he should kill himself. No new symptoms reported, improving slowly and needs more time No SEs from medications, risks discussed. After care discussed. Pt was strongly reminded to follow up with aftercare programs (shelter case manager) as well as appointment and medications since he admits to not following up after last discharge. PT is also reminded that his family wants to help him and that his condition can greatly improve if he follows up with all recommended after care plans. Medication Change: No Medical Record Reviewed: Yes Mental Status Examination - Cognitive Function Orientation: Person, Place, Situation, Time Memory: Intact Attention: WNL Concentration: WNL Association: WNL Fund of Knowledge: WNL - Mood Mood: Neutral - Affect Affect: Constricted - Speech Speech: Appropriate - Formal Thought Process Formal Thought Process: Hallucinations (command auditory hallucinations) - Suicidal Ideation Suicidal Ideation: No - Homicidal Ideation Homicidal Ideation: No Goal/Treatment Plan - Goal/Treatment Plan Need for Continued Stay: Discharge may exacerbated symptoms Progress Toward Problem(s) and Goals/Treatment Plan: Continue medications. Attend groups and activities Individual therapy Psychoeducation and support Encourage compliance with meds and after care Refer to outpatient program Teach healthy lifestyle methods, i.e. diet, exercise, meditation Smoking cessation Estimated Date of D/C: 12/28/16
[2016-12-26] MEDS ORDERED: Aluminum Hydroxide/Magnesium Hydroxide Susp (30 mL) PO PRN (22:24)
[2016-12-27] MEDS: Divalproex 500 mg DR Tab PO SCH ×3 (09:23→21:15)
[2016-12-27] MEDS: Multiple Vitamins Tab PO SCH (09:23)
--- NOTE | 2016-12-27 13:38 | PCM.PYCHPN ---
Psychiatric Progress Note - Psychiatric Progress Note Patient seen today, length of contact: 17 mins Patient Chief Complaint: " Im feeling a little better" Problems Identified/Issues Discussed: The pt is seen, chart reviewed, case discussed with staff. Pt reports that he slept well and that his mood is good. When asked patient denied tremors, however, tremors where observed. Pt currently denies SI as well as hearing voices that degrade him or tell him to kill himself. The pt is compliant with medications and reports no side-effects. Symptoms are improving but needs more time to stabilize. After care discussed, support and psychoeducation given. Pt states that upon release he will like to attend a fdc in order to have a place to live because he "doesn't want anything to happen, I don't want to ". Pt was encouraged to talk to SW and counselors to help set up housing as well as a case management assistant. Pt was also counseled on healthier eating habits and exercise. Medication Change: No Medical Record Reviewed: Yes Mental Status Examination - Cognitive Function Orientation: Person, Place, Situation, Time Memory: Intact Attention: WNL Concentration: WNL Association: WNL Fund of Knowledge: WNL - Mood Mood: Neutral - Affect Affect: Constricted - Speech Speech: Appropriate - Suicidal Ideation Suicidal Ideation: No - Homicidal Ideation Homicidal Ideation: No Goal/Treatment Plan - Goal/Treatment Plan Need for Continued Stay: Discharge may exacerbated symptoms Progress Toward Problem(s) and Goals/Treatment Plan: Attend groups and activities Individual therapy Psychoeducation and support Encourage compliance with meds and after care Refer to outpatient program Encouraged to speak with counselors and SW in regards to housing and care transition mgr. Teach healthy lifestyle methods, i.e. diet, exercise, meditation Smoking cessation Estimated Date of D/C: 12/28/16
--- NOTE | 2016-12-27 22:16 | CARD ---
APPROVED REPORT EKG Measurement Heart [id number] <Conclusion> Normal sinus rhythm Normal ECG
[2016-12-28] MEDS ORDERED: Haloperidol Decanoate 100 mg/ml Inj IM ONE ×2 (10:00→14:00)
[2016-12-28] MEDS: Multiple Vitamins Tab PO SCH (10:46)
[2016-12-28] MEDS: Divalproex 500 mg DR Tab PO SCH ×2 (13:41→17:59)
--- NOTE | 2016-12-28 14:21 | PCM.PYCHPN ---
Psychiatric Progress Note - Psychiatric Progress Note Patient seen today, length of contact: 17 mins Patient Chief Complaint: "I'm okay doc" Problems Identified/Issues Discussed: The pt is seen, chart reviewed, case discussed with staff. He reports he is doing well and is sleeping well. Pt reports no SI, no hallucinations. Denies feeling as if anyone was out to get him. The pt is compliant with medications and reports no side-effects. Symptoms are improving but needs more time to stabilize. After care discussed, support and psychoeducation given. Pt reports that upon discharge he will go to a intermediate. Pt is encouraged to continue to attend programs, set up a case assembler with the SW and keep in contact as well as touch base with family. Medication Change: Yes (Haloperidol Decanoate Injection given ) Medical Record Reviewed: Yes Mental Status Examination - Cognitive Function Orientation: Person, Place, Situation, Time Memory: Intact Attention: WNL Concentration: WNL Association: [facility] Fund of Knowledge: WN - Mood Mood: Neutral - Affect Affect: Broad - Speech Speech: Appropriate - Suicidal Ideation Suicidal Ideation: No - Homicidal Ideation Homicidal Ideation: No Goal/Treatment Plan - Goal/Treatment Plan Need for Continued Stay: Discharge may exacerbated symptoms Progress Toward Problem(s) and Goals/Treatment Plan: Continue as needed medications Start Haloperidol Decanoate 100mg IM ONCE Attend groups and activities Individual therapy Psychoeducation and support Encourage compliance with meds and after care Refer to outpatient program Teach healthy lifestyle methods, i.e. diet, exercise, meditation Smoking cessation 17 mins Estimated Date of D/C: 12/30/16 If changed, why: Monitor after Haloperidol injection given
[2016-12-29] MEDS: Multiple Vitamins Tab PO SCH (09:58)
[2016-12-29] MEDS: Divalproex 500 mg DR Tab PO SCH ×2 (09:58→17:38)
--- NOTE | 2016-12-29 11:58 | PCM.PYCHPN ---
Psychiatric Progress Note - Psychiatric Progress Note Patient seen today, length of contact: 16 mins Patient Chief Complaint: "Feeling good doc" Problems Identified/Issues Discussed: The pt is seen, chart reviewed, case discussed with staff. Pt reports sleeping well throughout the night. He denies SI, hallucinations and thought that others are out to get him. Pt reports he was given the shot yesterday and still has some tremors but denies any SE from the injection. The pt is compliant with medications and reports no side-effects. Symptoms are improving but needs more time to stabilize. After care discussed, support and psychoeducation given. Pt is encouraged to take his medications once discharged, to follow up with outpatient case manager, and visit his family to have additional support. Medication Change: No Medical Record Reviewed: Yes Mental Status Examination - Cognitive Function Orientation: Person, Place, Situation, Time Memory: Intact Attention: WNL Concentration: WNL Association: WNL Fund of Knowledge: WNL - Mood Mood: Neutral - Affect Affect: Broad - Speech Speech: Appropriate - Suicidal Ideation Suicidal Ideation: No - Homicidal Ideation Homicidal Ideation: No Goal/Treatment Plan - Goal/Treatment Plan Need for Continued Stay: Discharge may exacerbated symptoms Progress Toward Problem(s) and Goals/Treatment Plan: Continue as needed medications Attend groups and activities Individual therapy Psychoeducation and support Encourage compliance with meds and after care Refer to outpatient program Teach healthy lifestyle methods, i.e. diet, exercise, meditation Smoking cessation 16 mins Estimated Date of D/C: 12/30/16
[2016-12-29 15:57] VITALS: RESP 18
[2016-12-30 08:09] VITALS: BP 116/75; PULSE 112; TEMP 98.5
--- NOTE | 2016-12-30 09:38 | PCM.PYCHDC ---
Mental Status Examination - Mental Status Examination Orientation: Person, Place, Situation, Time Memory: Intact Mood: Neutral Affect: Broad Speech: Appropriate Attention: WNL Concentration: WNL Association: WNL Fund of Knowledge: WNL Formal Thought Process: No Impairment Suicidal Ideation: No Current Homicidal Ideation?: No Discharge Summary - Discharge Note Reason for Hospitalization: Pt was having auditory hallucinations telling him to jump off the bridge. Psychiatric History (includes Medical, Family, Personal Hx): [facility] Consultations:: List each consultation separately and include: 1. Reason for request. 2. Findings. 3. Follow-up Summary of Hospital Course include:: 1. Description of specific treatment plan utilized for patients during their course of treatmen. 2. Summarize the time- course for resolution of acute symptoms and/or regressed behaviors. 3. Describe issues identified and worked on during hospitalization. 4. Describe medication utilized. 5. Describe medical problems identified and treated. 6. Reassessment of suicide risk Summary of Hospital Course: The pt was admitted and started on treatment with psychotherapy, support, psychoeducation and medications. Pt states he is doing well today and slept well overall. Supportive tx used The pt attended groups and activities, as well as milieu therapy. All the risks and benefits of medications are discussed and the patient understood and agreed. The pt improved with the treatments provided. After care discussed with the patient. Pt states he will look for a skilled nursing, will try [facility] or [place] shelters. Pt is encouraged to get his medications from the pharmacy once he is discharged and continue their use. He will attend [facility] attempted to call [facility] but no one reportedly called back - Final Diagnosis (DSM 5) Condition upon Discharge: STABLE DSM 5: Schizoaffective d/o Disposition: HOME/ ROUTINE Follow-up Treatment Plan: Continue below medications after discharge. Follow after care plan as discussed. Use relapse prevention skills Return to ER or call 911 if suicidal, homicidal or symptoms relapse. Stay away from stress, alcohol and drugs. See primary doctor regularly and get labs. Prescriptions/Medication Reconciliation: Benztropine [Cogentin] 2 mg PO BID #60 tab Divalproex [Depakote DR] 500 mg PO BID #60 tcp Docusate [Colace] 100 mg PO BID PRN #60 cap PRN Reason: Constipation Haloperidol [Haldol] 5 mg PO BID #60 tab traZODone [Desyrel] 100 mg PO HS PRN #30 tab PRN Reason: Insomnia - Antipsychotic Medications Pt discharged on 2 or more routine antipsychotic medications: No
[2016-12-30] MEDS: Multiple Vitamins Tab PO SCH (10:11)
[2016-12-30] MEDS: Divalproex 500 mg DR Tab PO SCH (10:11)
== END 2016-12-30 10:20 | disposition home or self-care (01) | DRG 430 ==
LOC: C.ER 20:48 → C.5E 23:33
PROVIDERS: ADMIT Psychiatry & Neurology Psychiatry; ATTEND Psychiatry & Neurology Psychiatry
PROC: GZHZZZZ Group Psychotherapy (ICD-10-PCS; principal; 2016-12-23)
PROC: GZ58ZZZ Individual Psychotherapy, Cognitive-Behavioral (ICD-10-PCS; 2016-12-23)
PROC: GZ56ZZZ Individual Psychotherapy, Supportive (ICD-10-PCS; 2016-12-23)
DX: F25.8 Other schizoaffective disorders (principal); Z59.0 Homelessness; F12.90 Cannabis use, unspecified, uncomplicated; F32.9 Major depressive disorder, single episode, unspecified; F17.210 Nicotine dependence, cigarettes, uncomplicated

== ENCOUNTER 2017-09-03 16:06 | Emergency (ER) | payer MEDICAID ==
[2017-09-03 16:08] VITALS: BMI 21.4
[2017-09-03 16:35] LABS: SQUAMOUS EPITHIAL < 1 /hpf (0-5); URINE BILIRUBIN NEGATIVE (NEGATIVE); URINE BLOOD NEGATIVE (NEGATIVE); URINE CLARITY Clear (Clear); URINE COLOR Yellow (YELLOW); URINE GLUCOSE (UA) NORMAL (Normal); URINE LEUKOCYTE ESTERASE NEG Leu/uL (Negative); URINE PROTEIN NEGATIVE (NEGATIVE); URINE UROBILINOGEN NORMAL mg/dL (0.2-1.0)
[2017-09-03 16:38] LABS: BASO # 0.1 K/uL (0.0-0.2); BASO % 1.2 % (0.0-2.0); EOS # 0.1 K/uL (0.0-0.7); EOS % 0.9 % (0.0-4.0); HEMOGLOBIN 14.8 g/dL (12.0-18.0); LYMPH # 2.3 K/uL (1.0-4.3); LYMPH % 19.4 % (20.0-40.0); MEAN CELL VOLUME 90.9 fL (80.0-94.0); MEAN CORPUSCULAR HEMOGLOBIN 31.4 pg (27.0-31.0); MEAN CORPUSCULAR HGB CONC 34.6 g/dL (33.0-37.0); MEAN PLATELET VOLUME 8.2 fL (7.2-11.7); MONO # 0.9 K/uL (0.0-0.8); MONO % 7.4 % (0.0-10.0); NEUT # 8.6 K/uL (1.8-7.0); NEUT % 71.1 % (50.0-75.0); RBC 4.7 Mil/uL (4.40-5.90); RED CELL DISTRIBUTION WIDTH 14.1 % (11.5-14.5)
[2017-09-03 16:42] VITALS: BP 127/94; PULSE 88; RESP 18; TEMP 97.9; O2SAT 100
[2017-09-03 16:48] LABS: ALB/GLOB RATIO 1.2 (1.0-2.1); ALBUMIN 4.3 g/dL (3.5-5.0); ALT/SGPT 28 U/L (21-72); AST/SGOT 24 U/L (17-59); BLOOD UREA NITROGEN 4 mg/dL (9-20); CALCIUM 9.7 mg/dl (8.6-10.4); GFR AFRICAN-AMERICAN > 60; GFR NON-AFRICAN AMERICAN > 60
[2017-09-03 16:50] LABS: BARBITURATES, UR NEGATIVE (NEGATIVE); BENZODIAZEPINES, UR NEGATIVE (NEGATIVE); OPIATES, UR NEGATIVE (NEGATIVE); PHENCYCLIDINE, UR NEGATIVE (NEGATIVE)
--- NOTE | 2017-09-03 17:18 | C.PDOC ---
History Of Present Illness 32-year-old male, PMHx includes schizophrenia, presents to the emergency department with complaints of auditory hallucinations. Patient states he is hearing voices that are telling him to harm himself. He denies any specific plan. Time Seen by Provider: 09/03/17 16:12 Chief Complaint (Nursing): Psychiatric Evaluation History Per: Patient History/Exam Limitations: no limitations Current Symptoms Are (Timing): Still Present Past Medical History Reviewed: Historical Data, Nursing Documentation, Vital Signs Vital Signs: Last Vital Signs Temp 97.9 F 09/03/17 16:42 Pulse 88 09/03/17 16:42 Resp 18 09/03/17 16:42 BP 127/94 H 09/03/17 16:42 Pulse Ox 100 09/03/17 17:18 - Medical History PMH: Anxiety, Back Problems, Bipolar Disorder, Depression, Paranoia, Schizophrenia Surgical History: - [facility] Procedures GROUP PSYCHOTHERAPY (08/24/17) INDIVID PSYCHOTHERAP NEC (07/25/14) INDIVIDUAL PSYCHOTHERAPY, BEHAVIORAL (05/03/17) INDIVIDUAL PSYCHOTHERAPY, COGNITIVE-BEHAVIORAL (07/18/17) INDIVIDUAL PSYCHOTHERAPY, SUPPORTIVE (08/24/17) INJECT/INFUSE NEC (05/02/13) INTRODUCTION OF SERUM/TOX/VACCINE INTO MUSCLE, PERC APPROACH (01/25/15) MEDICATION MANAGEMENT (08/24/17) NEBULIZER THERAPY (07/08/14) OTHER GROUP THERAPY (07/25/14) PSYCHIA INTERV/EVAL NEC (07/22/14) PSYCHIAT DRUG THERAP NEC (02/02/14) Family History: States: No Known Family Hx - Social History Hx Tobacco Use: Yes Hx Alcohol Use: Yes Hx Substance Use: No - Immunization History Hx Tetanus Toxoid Vaccination: No Hx Influenza Vaccination: No Hx Pneumococcal Vaccination: No Review Of Systems Cardiovascular: Negative for: Chest Pain Respiratory: Negative for: Shortness of Breath Gastrointestinal: Negative for: Nausea, Vomiting Psych: Positive for: Other (auditory hallucinations) Physical Exam - Physical Exam Appears: Non-toxic, No Acute Distress Skin: Normal Color, Warm, Dry, No Rash Head: Atraumatic, Normacephalic Eye(s): bilateral: Normal Inspection Nose: Normal Oral Mucosa: Moist Lips: Normal Appearing Neck: Normal ROM Chest: Symmetrical Cardiovascular: Rhythm Regular, No Murmur Respiratory: Normal Breath Sounds, No Accessory Muscle Use Gastrointestinal/Abdominal: Soft, No Tenderness Extremity: Normal ROM, No Deformity, No Swelling Neurological/Psych: Oriented x3, Normal Speech ED Course And Treatment - Laboratory Results Result Diagrams: 09/03/17 16:29 09/03/17 16:29 O2 Sat by Pulse Oximetry: 100 (RA) Pulse Ox Interpretation: Normal Medical Decision Making Medical Decision Making: Dr. Godwin recommends discharge and outpatient follow up. Disposition - Disposition Disposition: HOME/ ROUTINE Disposition Time: 17:27 Condition: STABLE Instructions: Schizophrenia Forms: [employer] (Al[place]ian) - Clinical Impression Clinical Impression: Schizophrenia - Scribe Statement The provider has reviewed the documentation as recorded by the Scribe (Jose Roberto Mantilla) All medical record entries made by the Scribe were at my direction and personally dictated by me. I have reviewed the chart and agree that the record accurately reflects my personal performance of the history, physical exam, medical decision making, and the department course for this patient. I have also personally directed, reviewed, and agree with the discharge instructions and disposition.
== END 2017-09-03 17:21 | disposition home or self-care (01) ==
LOC: C.ER 16:06
DX: F20.9 Schizophrenia, unspecified (principal); F31.9 Bipolar disorder, unspecified